=== PATIENT | female | born 1975 | race Caucasian/White ===

== ENCOUNTER 2019-02-27 03:38 | Emergency (ER) | payer SELFPAY ==
[~2019-02-27] VITALS: Ht 160 cm; Wt 56.2 kg
[~2019-02-27 03:38] MED LIST: CIPR500T78 PO; HYDR-1231 PO; IBP800T PO; KETO-22 PO; LEVO500T69 PO; ONDA-42 SL; ONDAN4ODT PO; OXYC10TA7 PO; SULF1TAB38 PO
--- OUTSIDE RECORDS SUMMARY | 2019-02-27 03:43 | XMS REPORT | Clinical Summary ---
Author Author [facility] Organization [facility] Address Unknown Phone Unavailable Care Team Providers Care Facility Administrator Name Role Phone Chandu Daniel MD PCP Kvng Milan MD Unavailable Source Comments Some departments are not documenting in the electronic medical record. If you d o not see the information that you expected, contact Release of Information in [facility] Information Management department at [phone] for further assistan ce in locating additional records.[facility] Allergies Comments Active Allergy Reactions Severity Noted Date Penicillins 10/28/2008 Medications End Date Status Medication Sig Dispensed Refills Start Date Active PRILOSEC 20 mg CpDR Take 20 mg by 0 mouth Daily. Active METOCLOPRAMIDE 10 mg Take 10 mg by 0 tablet mouth Four Times Daily. Active AZITHROMYCIN 250 mg Take 250 mg 0 tablet by mouth Daily. Z-CHRISTINE - DIRECTED Active Problems Not on file Social History Date Tobacco Use Types Packs/Day Years Used Never Assessed Sex Assigned at Date Recorded Not on file Industry Job Start Date Occupation Not on file Not on file Not on file Travel End Travel History Travel Start No recent travel history available. Last Filed Vital Signs Not on file Plan of Treatment Health Maintenance Due Date Last Done Comments PHYSICAL (COMPREHENSIVE) 1982 EXAM HIV SCREENING 1990 DTAP/TDAP VACCINES ( - 1993 Tdap) CERVICAL CANCER SCREENING 2005 BREAST CANCER SCREENING 2015 INFLUENZA VACCINE 06/17/2019 Results Not on filefrom Last 3 Months
--- OUTSIDE RECORDS SUMMARY | 2019-02-27 03:43 | XMS REPORT | Continuity of Care Document ---
Author Organization Unknown Address Unknown Allergies Active Description Code Type Severity Reaction Onset Reported/Identified Relationship to Patient Clinical Status Yes Penicillins Drug Allergy 03/07/2012 Yes Penicillins Drug Allergy N/A N/A 03/07/2012 Medications There is no data. Problems Date Dx Coded Attending Type Code Diagnosis Diagnosed By 03/07/2012 KARAN RENNER DO 719.40 PAIN IN JOINT SITE UNSPECIFIED 03/07/2012 KARAN RENNER DO 729.1 MUSCLE PAIN 03/07/2012 KARAN RENNER DO V49.81 menopause 03/07/2012 KARAN RENNER DO V76.47 Vaginal Pap Smear Screening 03/07/2012 719.40 PAIN IN JOINT SITE UNSPECIFIED 03/07/2012 729.1 MUSCLE PAIN 03/07/2012 V49.81 menopause 03/07/2012 V76.47 Vaginal Pap Smear Screening 03/07/2012 KARAN RENNER DO 719.40 PAIN IN JOINT SITE UNSPECIFIED 03/07/2012 KARAN RENNER DO 729.1 MUSCLE PAIN 03/07/2012 KARAN RENNER DO V49.81 menopause 03/07/2012 KARAN RENNER DO V76.47 Vaginal Pap Smear Screening 03/07/2012 719.40 PAIN IN JOINT SITE UNSPECIFIED 03/07/2012 729.1 MUSCLE PAIN 03/07/2012 V49.81 menopause 03/07/2012 V76.47 Vaginal Pap Smear Screening 03/07/2012 719.40 PAIN IN JOINT SITE UNSPECIFIED 03/07/2012 729.1 MUSCLE PAIN 03/07/2012 V49.81 menopause 03/07/2012 V76.47 Vaginal Pap Smear Screening 03/07/2012 KARAN RENNER DO 719.40 PAIN IN JOINT SITE UNSPECIFIED 03/07/2012 KARAN RENNER DO 729.1 MUSCLE PAIN 03/07/2012 KARAN RENNER DO V49.81 menopause 03/07/2012 RENNER DO, KARAN K V76.47 Vaginal Pap Smear Screening 03/07/2012 DESIREE AGUILAR APRNIDI A 719.40 PAIN IN JOINT SITE UNSPECIFIED 03/07/2012 DESIREE AGUILAR APRNIDI A 729.1 MUSCLE PAIN 03/07/2012 DESIREE AGUILAR APRNIDI A V49.81 menopause 03/07/2012 DESIREE AGUILAR APRNIDI A V76.47 Vaginal Pap Smear Screening 03/07/2012 RENNER DO KARAN K 719.40 PAIN IN JOINT SITE UNSPECIFIED 03/07/2012 RENNER DO, KARAN K 729.1 MUSCLE PAIN 03/07/2012 RENNER DO, KARAN K V49.81 menopause 03/07/2012 RENNER DO, KARAN K V76.47 Vaginal Pap Smear Screening 03/07/2012 RENNER DO, KARAN K 719.40 PAIN IN JOINT SITE UNSPECIFIED 03/07/2012 RENNER DO, KARAN K 729.1 MUSCLE PAIN 03/07/2012 RENNER DO, KARAN K V49.81 menopause 03/07/2012 RENNER DO, KARAN K V76.47 Vaginal Pap Smear Screening 03/07/2012 TAMAR BEE PA-C 719.40 PAIN IN JOINT SITE UNSPECIFIED 03/07/2012 TAMAR BEE PA-C M 729.1 MUSCLE PAIN 03/07/2012 TAMAR BEE PA-C M V49.81 menopause 03/07/2012 TAMAR BEE PA-C V76.47 Vaginal Pap Smear Screening 03/07/2012 JEFF IVORYDEYA A 719.40 PAIN IN JOINT SITE UNSPECIFIED 03/07/2012 JEFF MCKEONDanette DEYA A 729.1 MUSCLE PAIN 03/07/2012 JEFF IVORY DEYA A V49.81 menopause 03/07/2012 JEFF IVORY DEYA A V76.47 Vaginal Pap Smear Screening 03/07/2012 MILLY DDS, CAROLINE B 719.40 PAIN IN JOINT SITE UNSPECIFIED 03/07/2012 MILLY DDS, CAROLINE B 729.1 MUSCLE PAIN 03/07/2012 MILLY DDS, CAROLINE B V49.81 menopause 03/07/2012 MILLY DDS, CAROLINE B V76.47 Vaginal Pap Smear Screening 03/07/2012 JOSE LUIS BAGLEY APRN 719.40 PAIN IN JOINT SITE UNSPECIFIED 03/07/2012 JOSE LUIS BAGLEY APRN R 729.1 MUSCLE PAIN 03/07/2012 JOSE LUIS BAGLEY APRN R V49.81 menopause 03/07/2012 JOSE LUIS BAGLEY APRN V76.47 Vaginal Pap Smear Screening 03/28/2012 KARAN RENNER DO 727.00 SYNOVITIS AND TENOSYNOVITIS UNSPECIFIED 03/28/2012 KARAN RENNER DO 780.79 Other Malaise And Fatigue 03/28/2012 KARAN RENNER DO V58.69 LONG-TERM (CURRENT) USE OF OTHER MEDICATIONS 03/28/2012 KARAN RENNER DO V70.0 ROUTINE GENERAL MEDICAL EXAMINATION AT A HEALTH CARE FACILITY 03/28/2012 727.00 SYNOVITIS AND TENOSYNOVITIS UNSPECIFIED 03/28/2012 780.79 Other Malaise And Fatigue 03/28/2012 V58.69 LONG-TERM (CURRENT) USE OF OTHER MEDICATIONS 03/28/2012 V70.0 ROUTINE GENERAL MEDICAL EXAMINATION AT A HEALTH CARE FACILITY 03/28/2012 KARAN RENNER DO 727.00 SYNOVITIS AND TENOSYNOVITIS UNSPECIFIED 03/28/2012 KARAN RENNER DO 780.79 Other Malaise And Fatigue 03/28/2012 KARAN RENNER DO V58.69 LONG-TERM (CURRENT) USE OF OTHER MEDICATIONS 03/28/2012 KARAN RENNER DO V70.0 ROUTINE GENERAL MEDICAL EXAMINATION AT A HEALTH CARE FACILITY 03/28/2012 727.00 SYNOVITIS AND TENOSYNOVITIS UNSPECIFIED 03/28/2012 780.79 Other Malaise And Fatigue 03/28/2012 V58.69 LONG-TERM (CURRENT) USE OF OTHER MEDICATIONS 03/28/2012 V70.0 ROUTINE GENERAL MEDICAL EXAMINATION AT A HEALTH CARE FACILITY 03/28/2012 727.00 SYNOVITIS AND TENOSYNOVITIS UNSPECIFIED 03/28/2012 780.79 Other Malaise And Fatigue 03/28/2012 V58.69 LONG-TERM (CURRENT) USE OF OTHER MEDICATIONS 03/28/2012 V70.0 ROUTINE GENERAL MEDICAL EXAMINATION AT A HEALTH CARE FACILITY 03/28/2012 KARAN RENNER DO 727.00 SYNOVITIS AND TENOSYNOVITIS UNSPECIFIED 03/28/2012 KARAN RENNER DO 780.79 Other Malaise And Fatigue 03/28/2012 KARAN RENNER DO V58.69 LONG-TERM (CURRENT) USE OF OTHER MEDICATIONS 03/28/2012 KARAN RENNER DO V70.0 ROUTINE GENERAL MEDICAL EXAMINATION AT A HEALTH CARE FACILITY 03/28/2012 JEFF AIR CONTROL/ANTI AIR WARFARE OFFICER, DEYA A 727.00 SYNOVITIS AND TENOSYNOVITIS UNSPECIFIED 03/28/2012 JEFF AIR CONTROL/ANTI AIR WARFARE OFFICER, DEYA A 780.79 Other Malaise And Fatigue 03/28/2012 JEFF AIR CONTROL/ANTI AIR WARFARE OFFICER, DEYA A V58.69 LONG-TERM (CURRENT) USE OF OTHER MEDICATIONS 03/28/2012 JEFF AIR CONTROL/ANTI AIR WARFARE OFFICER, DEYA A V70.0 ROUTINE GENERAL MEDICAL EXAMINATION AT A HEALTH CARE FACILITY 03/28/2012 EARL RENNER DOA K 727.00 SYNOVITIS AND TENOSYNOVITIS UNSPECIFIED 03/28/2012 KARAN RENNER DO 780.79 Other Malaise And Fatigue 03/28/2012 KARAN RENNER DO V58.69 LONG-TERM (CURRENT) USE OF OTHER MEDICATIONS 03/28/2012 KARAN RENNER DO V70.0 ROUTINE GENERAL MEDICAL EXAMINATION AT A HEALTH CARE FACILITY 03/28/2012 KARAN RENNER DO K 727.00 SYNOVITIS AND TENOSYNOVITIS UNSPECIFIED 03/28/2012 KARAN RENNER DO 780.79 Other Malaise And Fatigue 03/28/2012 KARAN RENNER DO V58.69 LONG-TERM (CURRENT) USE OF OTHER MEDICATIONS 03/28/2012 KARAN RENNER DO K V70.0 ROUTINE GENERAL MEDICAL EXAMINATION AT A HEALTH CARE FACILITY 03/28/2012 TAMAR BEE PA-C 727.00 SYNOVITIS AND TENOSYNOVITIS UNSPECIFIED 03/28/2012 TAMAR BEE PA-C 780.79 Other Malaise And Fatigue 03/28/2012 TAMAR BEE PA-C V58.69 LONG-TERM (CURRENT) USE OF OTHER MEDICATIONS 03/28/2012 TAMAR BEE PA-C V70.0 ROUTINE GENERAL MEDICAL EXAMINATION AT A HEALTH CARE FACILITY 03/28/2012 JEFF AIR CONTROL/ANTI AIR WARFARE OFFICER, DEYA A 727.00 SYNOVITIS AND TENOSYNOVITIS UNSPECIFIED 03/28/2012 JEFF AIR CONTROL/ANTI AIR WARFARE OFFICER, DEYA A 780.79 Other Malaise And Fatigue 03/28/2012 DYEA AGUILAR APRN V58.69 LONG-TERM (CURRENT) USE OF OTHER MEDICATIONS 03/28/2012 DEYA AGUILAR APRN V70.0 ROUTINE GENERAL MEDICAL EXAMINATION AT A HEALTH CARE FACILITY 03/28/2012 MILLY DDS, CAROLINE B 727.00 SYNOVITIS AND TENOSYNOVITIS UNSPECIFIED 03/28/2012 MILLY DDS, CAROLINE B 780.79 Other Malaise And Fatigue 03/28/2012 MILLY DDS, CAROLINE B V58.69 LONG-TERM (CURRENT) USE OF OTHER MEDICATIONS 03/28/2012 MILLY DDS, CAROLINE B V70.0 ROUTINE GENERAL MEDICAL EXAMINATION AT A HEALTH CARE FACILITY 03/28/2012 KUMAR BAGLEY APRNINA R 727.00 SYNOVITIS AND TENOSYNOVITIS UNSPECIFIED 03/28/2012 KUMAR BAGLEY APRNINA R 780.79 Other Malaise And Fatigue 03/28/2012 JOSE LUIS BAGLEY APRN R V58.69 LONG-TERM (CURRENT) USE OF OTHER MEDICATIONS 03/28/2012 JOSE LUIS BAGLEY APRN R V70.0 ROUTINE GENERAL MEDICAL EXAMINATION AT A HEALTH CARE FACILITY 03/31/2012 RENNER DO, KARAN K 268.9 VITAMIN D DEFICIENCY 03/31/2012 268.9 VITAMIN D DEFICIENCY 03/31/2012 RENNER DO KARAN K 268.9 VITAMIN D DEFICIENCY 03/31/2012 268.9 VITAMIN D DEFICIENCY 03/31/2012 268.9 VITAMIN D DEFICIENCY 03/31/2012 RENNER DO KARAN K 268.9 VITAMIN D DEFICIENCY 03/31/2012 DEYA AGUILAR APRN 268.9 VITAMIN D DEFICIENCY 03/31/2012 RENNER DO, KARAN K 268.9 VITAMIN D DEFICIENCY 03/31/2012 RENNER DO, KARAN K 268.9 VITAMIN D DEFICIENCY 03/31/2012 TAMAR BEE PA-C 268.9 VITAMIN D DEFICIENCY 03/31/2012 DEYA AGUILAR APRN A 268.9 VITAMIN D DEFICIENCY 03/31/2012 MILLY DDS, CAROLINE B 268.9 VITAMIN D DEFICIENCY 03/31/2012 KEVYN IVORY JOSE LUIS R 268.9 VITAMIN D DEFICIENCY 05/17/2012 RENNER DO KARAN K 354.0 CARPAL TUNNEL SYNDROME 05/17/2012 RENNER DO, KARAN K 783.21 LOSS OF WEIGHT 05/17/2012 354.0 CARPAL TUNNEL SYNDROME 05/17/2012 783.21 LOSS OF WEIGHT 05/17/2012 RENNER DO, KARAN K 354.0 CARPAL TUNNEL SYNDROME 05/17/2012 RENNER DO, KARAN K 783.21 LOSS OF WEIGHT 05/17/2012 354.0 CARPAL TUNNEL SYNDROME 05/17/2012 783.21 LOSS OF WEIGHT 05/17/2012 354.0 CARPAL TUNNEL SYNDROME 05/17/2012 783.21 LOSS OF WEIGHT 05/17/2012 RENNER DO, KARAN K 354.0 CARPAL TUNNEL SYNDROME 05/17/2012 RENNER DO, KARAN K 783.21 LOSS OF WEIGHT 05/17/2012 JEFFCLAUDIA IVORY, DEYA A 354.0 CARPAL TUNNEL SYNDROME 05/17/2012 JEFF IVORY, DEYA A 783.21 LOSS OF WEIGHT 05/17/2012 RENNER DO, KARAN K 354.0 CARPAL TUNNEL SYNDROME 05/17/2012 RENNER DO KARAN K 783.21 LOSS OF WEIGHT 05/17/2012 RENNER DO, KARAN K 354.0 CARPAL TUNNEL SYNDROME 05/17/2012 RENNER DO, KARAN K 783.21 LOSS OF WEIGHT 05/17/2012 TAMAR BEE PA-C 354.0 CARPAL TUNNEL SYNDROME 05/17/2012 TAMAR BEE PA-C 783.21 LOSS OF WEIGHT 05/17/2012 JEFF IVORY, DEYA A 354.0 CARPAL TUNNEL SYNDROME 05/17/2012 DESIREE AGUILAR APRNIDI A 783.21 LOSS OF WEIGHT 05/17/2012 MILLY DDS, CAROLINE B 354.0 CARPAL TUNNEL SYNDROME 05/17/2012 MILLY DDS, CAROLINE B 783.21 LOSS OF WEIGHT 05/17/2012 KEVYN IVORY, JOSE LUIS R 354.0 CARPAL TUNNEL SYNDROME 05/17/2012 KEVYN IVORY, JOSE LUIS R 783.21 LOSS OF WEIGHT 08/05/2012 RENNER DOEARLA K 461.9 SINUSITIS ACUTE 08/05/2012 RENNER DO KARAN K V65.42 COUNSELING - SMOKING CESSATION 08/05/2012 461.9 SINUSITIS ACUTE 08/05/2012 V65.42 COUNSELING - SMOKING CESSATION 08/05/2012 KARAN RENNER DO K 461.9 SINUSITIS ACUTE 08/05/2012 KARAN RENNER DO K V65.42 COUNSELING - SMOKING CESSATION 08/05/2012 461.9 SINUSITIS ACUTE 08/05/2012 V65.42 COUNSELING - SMOKING CESSATION 08/05/2012 461.9 SINUSITIS ACUTE 08/05/2012 V65.42 COUNSELING - SMOKING CESSATION 08/05/2012 KARAN RENNER DO K 461.9 SINUSITIS ACUTE 08/05/2012 EARL RENNER DOA K V65.42 COUNSELING - SMOKING CESSATION 08/05/2012 JEFFCLAUDIA IVORY DEYA A 461.9 SINUSITIS ACUTE 08/05/2012 JEFFDanette IVORY DEYA A V65.42 COUNSELING - SMOKING CESSATION 08/05/2012 KAARN RENNER DO K 461.9 SINUSITIS ACUTE 08/05/2012 KARAN RENNER DO K V65.42 COUNSELING - SMOKING CESSATION 08/05/2012 KARAN RENNER DO K 461.9 SINUSITIS ACUTE 08/05/2012 KARAN RENNER DO K V65.42 COUNSELING - SMOKING CESSATION 08/05/2012 TAMAR BEE PA-C M 461.9 SINUSITIS ACUTE 08/05/2012 TAMAR BEE PA-C M V65.42 COUNSELING - SMOKING CESSATION 08/05/2012 JEFF IVORY DEYA A 461.9 SINUSITIS ACUTE 08/05/2012 JEFFDanette IVORY DEYA A V65.42 COUNSELING - SMOKING CESSATION 08/05/2012 MILLY MATHURS, CAROLINE B 461.9 SINUSITIS ACUTE 08/05/2012 MILLYKIRSTY MATHURS, CAROLINE B V65.42 COUNSELING - SMOKING CESSATION 08/05/2012 KEVYN IVORY, JOSE LUIS R 461.9 SINUSITIS ACUTE 08/05/2012 KEVYN IVORY, JOSE LUIS R V65.42 COUNSELING - SMOKING CESSATION 10/21/2012 KARAN RENNER DO 787.20 DYSPHAGIA UNSPECIFIED 10/21/2012 KARAN RENNER DO 789.00 ABDOMINAL PAIN UNSPECIFIED SITE 10/21/2012 787.20 DYSPHAGIA UNSPECIFIED 10/21/2012 789.00 ABDOMINAL PAIN UNSPECIFIED SITE 10/21/2012 787.20 DYSPHAGIA UNSPECIFIED 10/21/2012 789.00 ABDOMINAL PAIN UNSPECIFIED SITE 10/21/2012 RENNER DO, KARAN K 787.20 DYSPHAGIA UNSPECIFIED 10/21/2012 RENNER DO, KARAN K 789.00 ABDOMINAL PAIN UNSPECIFIED SITE 10/21/2012 JEFF AIR CONTROL/ANTI AIR WARFARE OFFICER, DEYA A 787.20 DYSPHAGIA UNSPECIFIED 10/21/2012 JEFF AIR CONTROL/ANTI AIR WARFARE OFFICER, DEYA A 789.00 ABDOMINAL PAIN UNSPECIFIED SITE 10/21/2012 RENNER DO, KARAN K 787.20 DYSPHAGIA UNSPECIFIED 10/21/2012 RENNER DO, KARAN K 789.00 ABDOMINAL PAIN UNSPECIFIED SITE 10/21/2012 RENNER DO, KARAN K 787.20 DYSPHAGIA UNSPECIFIED 10/21/2012 RENNER DO, KARAN K 789.00 ABDOMINAL PAIN UNSPECIFIED SITE 10/21/2012 TAMAR BEE PA-C 787.20 DYSPHAGIA UNSPECIFIED 10/21/2012 TAMAR BEE PA-C 789.00 ABDOMINAL PAIN UNSPECIFIED SITE 10/21/2012 JEFF IVORY, DEYA A 787.20 DYSPHAGIA UNSPECIFIED 10/21/2012 JEFF APRN, DEYA A 789.00 ABDOMINAL PAIN UNSPECIFIED SITE 10/21/2012 MILLY DDS, CAROLINE B 787.20 DYSPHAGIA UNSPECIFIED 10/21/2012 MILLY DDS, CAROLINE B 789.00 ABDOMINAL PAIN UNSPECIFIED SITE 10/21/2012 KEVYN IVORY, JOSE LUIS R 787.20 DYSPHAGIA UNSPECIFIED 10/21/2012 KEVYN MCKEONN, JOSE LUIS R 789.00 ABDOMINAL PAIN UNSPECIFIED SITE 02/21/2013 041.86 H. PYLORI INFECTION 02/21/2013 789.07 ABDOMINAL PAIN GENERALIZED 02/21/2013 RENNER DO, KARAN K 041.86 H. PYLORI INFECTION 02/21/2013 RENNER DO, KARAN K 789.07 ABDOMINAL PAIN GENERALIZED 02/21/2013 JEFF AIR CONTROL/ANTI AIR WARFARE OFFICER, DEYA A 041.86 H. PYLORI INFECTION 02/21/2013 JEFF AIR CONTROL/ANTI AIR WARFARE OFFICER, DEYA A 789.07 ABDOMINAL PAIN GENERALIZED 02/21/2013 RENNER DO, KARAN K 041.86 H. PYLORI INFECTION 02/21/2013 RENNER DO, KARAN K 789.07 ABDOMINAL PAIN GENERALIZED 02/21/2013 RENNER DO, KARAN K 041.86 H. PYLORI INFECTION 02/21/2013 RENNER DO, KARAN K 789.07 ABDOMINAL PAIN GENERALIZED 02/21/2013 TAMAR BEE PA-C 041.86 H. PYLORI INFECTION 02/21/2013 TAMAR BEE PA-C 789.07 ABDOMINAL PAIN GENERALIZED 02/21/2013 [facility] AIR CONTROL/ANTI AIR WARFARE OFFICER, DEYA A 041.86 H. PYLORI INFECTION 02/21/2013 JEFF AIR CONTROL/ANTI AIR WARFARE OFFICER, DEYA A 789.07 ABDOMINAL PAIN GENERALIZED 02/21/2013 ON LICENSE OF [facility] DDS, CAROLINE B 041.86 H. PYLORI INFECTION 02/21/2013 ON LICENSE OF [facility] DDS, CAROLINE B 789.07 ABDOMINAL PAIN GENERALIZED 02/21/2013 KEVYN AIR CONTROL/ANTI AIR WARFARE OFFICER, JOSE LUIS R 041.86 H. PYLORI INFECTION 02/21/2013 KEVYN AIR CONTROL/ANTI AIR WARFARE OFFICER, JOSE LUIS R 789.07 ABDOMINAL PAIN GENERALIZED 04/17/2013 RENNER DO, KARAN K 719.46 PAIN- KNEE 04/17/2013 JEFF APRN, DEYA A 719.46 PAIN- KNEE 04/17/2013 RENNER DO, KARAN K 719.46 PAIN- KNEE 04/17/2013 RENNER DO, KARAN K 719.46 PAIN- KNEE 04/17/2013 TAMAR BEE PA-C 719.46 PAIN- KNEE 04/17/2013 [facility] AIR CONTROL/ANTI AIR WARFARE OFFICER, DEYA A 719.46 PAIN- KNEE 04/17/2013 ON LICENSE OF [facility] DDS, CAROLINE B 719.46 PAIN- KNEE 04/17/2013 KEVYN IVORY, JOSE LUIS R 719.46 PAIN- KNEE 11/05/2013 JEFF APRN, DEYA A 599.0 URINARY TRACT INFECTION 11/05/2013 RENNER DO, KARAN K 599.0 URINARY TRACT INFECTION 11/05/2013 RENNER DO, KARAN K 599.0 URINARY TRACT INFECTION 11/05/2013 TAMAR BEE PA-C 599.0 URINARY TRACT INFECTION 11/05/2013 JEFF APRN, DEYA A 599.0 URINARY TRACT INFECTION 11/05/2013 ON LICENSE OF [facility] DDS, CAROLINE B 599.0 URINARY TRACT INFECTION 11/05/2013 JOSE LUIS BAGLEY APRN R 599.0 URINARY TRACT INFECTION 11/30/2013 RENNER DO, KARAN K 599.70 HEMATURIA 11/30/2013 RENNER DO, KARAN K 599.70 HEMATURIA 11/30/2013 TAMAR BEE PA-C 599.70 HEMATURIA 11/30/2013 JEFF APRN, DEYA A 599.70 HEMATURIA 11/30/2013 MILLY DDS, CAROLINE B 599.70 HEMATURIA 11/30/2013 KUMAR BAGLEY APRNINA R 599.70 HEMATURIA 12/03/2013 KARAN RENNER DO 455.6 UNSPECIFIED HEMORRHOIDS WITHOUT COMPLICATION 12/03/2013 TAMAR BEE PA-C 455.6 UNSPECIFIED HEMORRHOIDS WITHOUT COMPLICATION 12/03/2013 JEFFDEYA Samaniego APRN A 455.6 UNSPECIFIED HEMORRHOIDS WITHOUT COMPLICATION 12/03/2013 MLILY DDS, CAROLINE B 455.6 UNSPECIFIED HEMORRHOIDS WITHOUT COMPLICATION 12/03/2013 JOSE LUIS BAGLEY APRN R 455.6 UNSPECIFIED HEMORRHOIDS WITHOUT COMPLICATION 12/24/2013 DEYA AGUILAR APRN A 789.03 ABDOMINAL PAIN RIGHT LOWER QUADRANT 12/24/2013 DEYA AGUILAR APRN A V72.31 MEAT GRADER EXAM, ROUTINE 12/24/2013 DEYA AGUILAR APRN A V76.10 BREAST CANCER SCREENING 12/24/2013 MILLY DDS, CAROLINE B 789.03 ABDOMINAL PAIN RIGHT LOWER QUADRANT 12/24/2013 MILLY DDS, CAROLINE B V72.31 MEAT GRADER EXAM, ROUTINE 12/24/2013 MILLY DDS, CAROLINE B V76.10 BREAST CANCER SCREENING 12/24/2013 JOSE LUIS BAGLEY APRN R 789.03 ABDOMINAL PAIN RIGHT LOWER QUADRANT 12/24/2013 JOSE LUIS BAGLEY APRN R V72.31 MEAT GRADER EXAM, ROUTINE 12/24/2013 JOSE LUIS BAGLEY APRN R V76.10 BREAST CANCER SCREENING 03/30/2014 MILLY DDS, CAROLINE B V72.2 DENTAL EXAMINATION 03/30/2014 KUMAR BAGLEY APRNINA R V72.2 DENTAL EXAMINATION 06/19/2014 JOSE LUIS BAGLEY APRN 307.81 TENSION HEADACHE Procedures Code [place] [address] [place] CHEST W/O DYE 10/21/[address] ABDOMEN & PELVIS W/ & W/O CONTRAST 10/21/2012 37247 H PYLORI (IN-HOUSE) 02/21/2013 77271 UA W/ CULTURE IF INDICATED 11/05/[address] ABDOMEN & PELVIS W/ & W/O CONTRAST 11/28/2013 09556 UA W/ CULTURE IF INDICATED 11/28/2013 49450 UA W/MICROSCOPY 11/28/2013 96254 CULTURE URINE 11/29/2013 72669 ROUTINE VENIPUNCTURE 12/11/2013 50365 VITAMIN D 25-HYDROXY (D2,D3, TOTAL) 12/11/2013 42902 CBC 12/11/2013 86700 UA W/ CULTURE IF INDICATED 12/11/2013 D0140 LIMIT ORAL EVAL PROBLM FOCUS 03/30/2014 D0220 INTRAORAL PERIAPICAL FIRST F 03/30/[address] ABDOMEN & PELVIS W/ & W/O CONTRAST 03/30/2014 Results There is no data. Encounters ACCT No. Visit Date/Time Discharge Status Pt. Type Provider Facility Loc./Unit Complaint [id number] 06/19/2014 14:27:00 06/19/2014 23:59:59 CLS Outpatient JOSE LUIS BAGLEY APRN [id number] 03/30/2014 13:10:00 03/30/2014 23:59:59 CLS Outpatient CAROLINE ATKINS DDS [id number] 12/24/2013 09:06:00 12/24/2013 23:59:59 CLS Outpatient DEYA AGUILAR APRN [id number] 12/11/2013 14:10:00 12/11/2013 23:59:59 CLS Outpatient TAMAR BEE PA-C [id number] 12/03/2013 17:19:00 12/03/2013 23:59:59 CLS Outpatient KARAN RENNER DO [id number] 11/28/2013 09:39:00 11/28/2013 23:59:59 CLS Outpatient KARAN RENNER DO [id number] 11/05/2013 17:55:00 11/05/2013 23:59:59 CLS Outpatient DEYA AGUILAR APRN [id number] 04/17/2013 14:03:00 04/17/2013 23:59:59 CLS Outpatient KARAN RENNER DO [id number] 11/20/2012 16:48:00 11/20/2012 23:59:59 CLS Outpatient [id number] 10/21/2012 10:44:00 10/21/2012 23:59:59 CLS Outpatient KARAN RENNER DO [id number] 10/10/2012 13:35:00 10/10/2012 23:59:59 CLS Outpatient [id number] 07/11/2012 14:33:00 07/11/2012 23:59:59 CLS Outpatient KARAN RENNER DO [id number] 02/21/2013 13:29:00 Document Registration [id number] 06/11/2014 13:07:00 06/11/2014 23:59:59 CLS Outpatient [id number] 12/02/2013 08:42:00 12/02/2013 23:59:59 CLS Outpatient [id number] 11/21/2013 19:23:00 11/21/2013 22:18:00 DIS Emergency [id number] 10/31/2013 20:56:00 11/01/2013 00:27:00 DIS Emergency
--- OUTSIDE RECORDS SUMMARY | 2019-02-27 03:43 | XMS REPORT | Encounter Summary ---
Author Author [facility] Organization [facility] Address Unknown Phone Unavailable Care Team Providers Care Infrastructure Software Engineer Name Role Phone Chandu Daniel MD PCP Encounter Details Care Team Description Date Type Department Kvng Milan MD [address] [facility] [address] [place] [address] [phone] Scotty Mcallister MD [address] [facility] [address] [place] [address] [phone] 10/28/2008 [facility] Encounter [address] [place], [place] [id number] Social History Date Tobacco Use Types Packs/Day Years Used Never Assessed Sex Assigned at Date Recorded Not on file Industry Job Start Date Occupation Not on file Not on file Not on file Travel End Travel History Travel Start No recent travel history available. documented as of this encounter Medications at Time of Discharge Start Date End Date Medication Sig Dispensed Refills PRILOSEC 20 mg CpDR Take 20 mg by 0 mouth Daily. METOCLOPRAMIDE 10 mg Take 10 mg by 0 tablet mouth Four Times Daily. AZITHROMYCIN 250 mg Take 250 mg 0 tablet by mouth Daily. Z-CHRISTINE - DIRECTED documented as of this encounter Plan of Treatment Not on filedocumented as of this encounter Visit Diagnoses Not on filedocumented in this encounter Administered Medications Action Date Dose Rate Site Medication Order MAR Action 10/28/2008 12:22 PM PVC MONITOR 3.5 mL LIDOCAINE HCL 2 % MM JELP (AcuDose pull) Given NOW, 1 dose, 10/28/08 at 1200, Kassie Hewitt: Caitlin OverrKassie hernandez: Cabinet Override, documented in this encounter
[2019-02-27] MEDS ORDERED: ONDANSETRON 4 MG/2 ML (SDV) Z0FRAN IVP ONE (04:00)
[2019-02-27] MEDS ORDERED: LIDOCAINE 2% VISCOUS 15 ML UDC PO ONE (04:00)
[2019-02-27] MEDS ORDERED: ANTACID SUSP 30 ML UDC (MYLANTA) PO ONE (04:00)
[2019-02-27] MEDS ORDERED: NS IV 1000 ML 1,000 ML IV SCH (04:00)
[2019-02-27] MEDS ORDERED: PANTOPRAZOLE 40 MG (PROTONIX) VIAL IV ONE (04:00)
--- NOTE | 2019-02-27 04:07 | ED Abdominal Pain ---
General Chief Complaint: Abdominal/GI Problems Stated Complaint: ABD PAIN Nursing Triage Note: Patient states that she began having abdominal pain approximately 2 weeks ago that has progressively gotten worse. Patient has not see a doctor for this issue. Patient states her pain is in her epigastric area and rates it at a 6 on the 1-10 pain scale. Patient does have complaints of nausea with no vomiting. Last BM was 03/01/19 and it was normal. 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 Sepsis Screen: No Definite Risk History of Present Illness Date Seen by Provider: Feb 27, 2019 Time Seen by Provider: 03:50 Initial Comments The patient is a pleasant 43-year-old female who presents for evaluation of epig astric abdominal pain. She said it started 2 weeks ago. She reports a history of hiatal hernia and says that she has had similar pain before. Reports over the past 2 weeks has been increasing in intensity. She currently rates the pain as a 6 out of 10 and states that anything she tries to eat or drink makes the pain worse. She cannot find anything that helps. She said some mild nausea but no vomiting. She took Tylenol approximately one hour ago with little relief. She denies history of gastritis or peptic ulcer disease. She reports a past surgical history including cholecystectomy and total hysterectomy. She is alert and oriented 4, appears uncomfortable, but is in no distress at this time. She denies any recent alcohol or any history of pancreatitis. She does smoke cigarettes. She denies fevers or chills, rectal bleeding, pelvic pain/bleeding/discharge, urinary complaints, chest pain or shortness of breath, dizziness or syncope. Timing/Duration: Other (2 weeks) Severity/Quality: Moderate, Burning Location: Epigastric Radiation: No Radiation Activities at Onset: None Modifying Factors: Improves With Eating (makes it worse) Associated Symptoms: Heartburn, Nausea/Vomiting (nausea, no vomiting) Allergies and Home Medications Allergies Coded Allergies: Penicillins (Unverified Allergy, Mild, RASH, 07/11/10) Home Medications Ciprofloxacin HCl 500 Mg Tablet, 500 MG PO BID Prescribed by: TAMAR RICE on 11/21/132203 Hydrocodone Bit/Acetaminophen 1 Tab Tablet, 1-2 TAB PO Q6H PRN for PAIN Prescribed by: TAMAR RICE on 11/21/132203 Ketorolac Tromethamine 10 Mg Tablet, 10 MG PO Q6H Prescribed by: STEPH CADET on 10/31/132342 Levofloxacin 500 Mg Tab, 1 EACH PO DAILY Prescribed by: STEPH CADET on 10/31/132342 Ondansetron Hcl 4 Mg Tab, 4 MG SL Q4H FOR NAUSEA AND VOMITING Prescribed by: STEPH CADET on 10/31/132342 Patient Home Medication List Home Medication List Reviewed: Yes Review of Systems Review of Systems Constitutional: no symptoms reported EENTM: No Symptoms Reported Respiratory: No Symptoms Reported Cardiovascular: No Symptoms Reported Gastrointestinal: Abdominal Pain, Nausea Genitourinary: No Symptoms Reported Musculoskeletal: no symptoms reported Skin: no symptoms reported Psychiatric/Neurological: No Symptoms Reported Endocrine: No Symptoms Reported Hematologic/Lymphatic: No Symptoms Reported All Other Systems Reviewed Negative Unless Noted: Yes Past [id number]-Yjifmh Hx Past Med/Social Hx: Reviewed Nursing Past Med/Soc Hx, Reviewed and Corrections made Patient Social History Alcohol Use: Denies Use Recreational Drug Use: No Smoking Status: Current Everyday Smoker Type Used: Cigarettes 2nd Hand Smoke Exposure: Yes Recent Foreign Travel: No Contact w/Someone Who Travel: No Recent Infectious Disease Expo: No Recent Hopitalizations: No Physical Abuse: No Sexual Abuse: No Mistreated: No Fear: No Immunizations Up To Date Tetanus Booster (TDap): Less than 5yrs Seasonal Allergies Seasonal Allergies: No Past Medical History Surgeries: Yes (Hiatal Hernia Repair) Gallbladder, Hysterectomy Respiratory: No Cardiac: No Neurological: No Reproductive Disorders: No 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 0oz. [id number]; BMI Method:Stated General Appearance: WD/WN, no apparent distress HEENT: PERRL/EOMI, pharynx normal Neck: non-tender, full range of motion, normal inspection Respiratory: chest non-tender, lungs clear, normal breath sounds, no respiratory distress Cardiovascular: regular rate, rhythm, no edema, no JVD Gastrointestinal: normal bowel sounds, soft, no organomegaly, no pulsatile mass, tenderness (moderate tenderness over the epigastric region, otherwise benign abdominal examination, soft, no guarding, no rigidity, no distention or pulsatile mass) Extremities: normal range of motion, non-tender, normal inspection, no pedal edema Back: normal inspection, no CVA tenderness, no vertebral tenderness 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, no motor/sensory deficits, alert, normal mood/affect, oriented x 3 Skin: normal color, warm/dry Lymphatic: no adenopathy Progress/Results/Core Measures Results/Orders Lab Results Laboratory Tests Test 02/27/19 03:54 02/27/19 04:24 Range/Units Urine Color YELLOW Urine Clarity CLEAR Urine pH 6.0 5-9 Urine Specific [place] 1.025 H 1.016-1.022 Urine Protein 1+ H NEGATIVE Urine Glucose (UA) NEGATIVE NEGATIVE Urine Ketones NEGATIVE NEGATIVE Urine Nitrite NEGATIVE NEGATIVE Urine Bilirubin NEGATIVE NEGATIVE Urine Urobilinogen 0.2 NORMAL MG/DL Urine Leukocyte Esterase NEGATIVE NEGATIVE Urine RBC (Auto) 3+ H NEGATIVE Urine RBC 10-25 H /HPF Urine WBC RARE /HPF Urine Crystals NONE /LPF Urine Bacteria NEGATIVE /HPF Urine Casts NONE /LPF Urine Mucus NEGATIVE /LPF Urine Culture Indicated NO Sodium Level 142 135-145 MMOL/L Potassium Level 4.2 3.6-5.0 MMOL/L Chloride Level 103 98-107 MMOL/L Carbon Dioxide Level 25 21-32 MMOL/L Anion Gap 14 5-14 MMOL/L Blood Urea Nitrogen 25 H 7-18 MG/DL Creatinine 0.78 0.60-1.30 MG/DL Estimat Glomerular Filtration Rate > 60 BUN/Creatinine Ratio 32 Glucose Level 117 H 70-105 MG/DL Calcium Level 9.5 8.5-10.1 MG/DL Corrected Calcium 8.5-10.1 MG/DL Total Bilirubin 0.2 0.1-1.0 MG/DL Aspartate Amino Transf (AST/SGOT) 24 5-34 U/L Alanine Aminotransferase (ALT/SGPT) 20 0-55 U/L Alkaline Phosphatase 88 40-136 U/L Total Protein 7.9 6.4-8.2 GM/DL Albumin 4.6 H 3.2-4.5 GM/DL Amylase Level 90 25-125 U/L Lipase 54 8-78 U/L White Blood Count 10.5 4.3-11.0 10^3/uL Red Blood Count 4.81 4.35-5.85 10^6/uL Hemoglobin 14.5 11.5-16.0 G/DL Hematocrit 44 35-52 % Mean Corpuscular Volume 90 80-99 FL Mean Corpuscular Hemoglobin 30 25-34 PG Mean Corpuscular Hemoglobin Concent 33 32-36 G/DL Red Cell Distribution Width 12.3 10.0-14.5 % Platelet Count 242 130-400 10^3/uL Mean Platelet Volume 10.3 7.4-10.4 FL Neutrophils (%) (Auto) 51 42-75 % Lymphocytes (%) (Auto) 33 12-44 % Monocytes (%) (Auto) 10 0-12 % Eosinophils (%) (Auto) 5 0-10 % Basophils (%) (Auto) 1 0-10 % Neutrophils # (Auto) 5.3 1.8-7.8 X 10^3 Lymphocytes # (Auto) 3.4 1.0-4.0 X 10^3 Monocytes # (Auto) 1.1 H 0.0-1.0 X 10^3 Eosinophils # (Auto) 0.5 H 0.0-0.3 10^3/uL Basophils # (Auto) 0.1 0.0-0.1 10^3/uL My Orders Orders - ELLE QUEZADA DO Comprehensive Metabolic Panel (02/27/19 03:54) Lipase (02/27/19 03:54) Amylase (02/27/19 03:54) Ua Culture If Indicated (02/27/19 03:54) Ed Iv/Invasive Line Start (02/27/19 03:54) Cbc With Automated Diff (02/27/19 03:54) Lidocaine 2% Viscous 15 Ml (Xylocaine Vi (02/27/19 04:00) Antacid Suspension (Mylanta Suspension (02/27/19 04:00) Pantoprazole Injection (Protonix Injecti (02/27/19 04:00) Ondansetron Injection (Zofran Injectio (02/27/19 04:00) Ns Iv 1000 Ml (Sodium Chloride 0.9%) (02/27/19 04:00) Medications Given in ED Current Medications Medications Dose Ordered Sig/Daron Route Start Time Stop Time Status Last Admin Dose Admin Al Hydrox/Mg Hydrox/Simethicone 30 ml ONCE ONCE PO 02/27/19 04:00 02/27/19 04:01 DC 02/27/19 04:47 30 ML Lidocaine HCl 15 ml ONCE ONCE PO 02/27/19 04:00 02/27/19 04:01 DC 02/27/19 04:47 15 ML Ondansetron HCl 4 mg ONCE ONCE IVP 02/27/19 04:00 02/27/19 04:01 DC 02/27/19 04:47 4 MG Pantoprazole 40 mg ONCE ONCE IV 02/27/19 04:00 02/27/19 04:01 DC 02/27/19 04:47 40 MG Vital Signs/I&O 02/27/19 03:42 Temp 98.2 Pulse 97 Resp 20 B/P (MAP) 126/98 (107) Pulse Ox 99 O2 Delivery Room Air Blood Pressure Mean: 107 Progress Progress Note : Progress Note @0505 - The patient reports feeling much better after the GI cocktail and medications. Her labs are essentially unremarkable. She was noted to have some blood in her urine however her symptoms did not clinically fit a kidney stone or an acute UTI. Advised the patient to follow up with her PCP in the next 2-3 days regarding the hematuria and epigastric abdominal pain. She'll go home with a prescription for Zofran and Protonix. She may need to have an EGD performed in the near future and she expresses verbal understanding regarding this. Advised the patient to return to the emergency Department immediately for new or worse iman symptoms. The patient expresses verbal understanding and agreement with the plan and is stable for discharge. Departure Impression Primary Impression: Epigastric abdominal pain Additional Impression: Hiatal hernia Disposition: 01 HOME, SELF-CARE Condition: Stable Departure-Patient Inst. Decision time for Depature: 05:12 Referrals: NO,LOCAL PHYSICIAN (PCP) Primary Care Physician Patient Instructions: Hiatal Hernia, Peptic Ulcers, Gastritis (DC) Add. Discharge Instructions: Follow-up with your doctor in the next 2-3 days. Take the prescribed medications as directed. Return to emergency department immediately for new or worsening symptoms. Scripts Pantoprazole Sodium (Protonix) 20 Mg Tablet.dr 20 MG PO DAILY for 30 Days, #30 TAB Prov: ELLE QUEZADA DO 02/27/19 Ondansetron (Ondansetron Odt) 4 Mg Tab.rapdis 4 MG PO Q4H, #20 TAB Prov: ELLE QUEZADA DO 02/27/19 ELLE QUEZADA DO Feb 27, 2019 04:07
[2019-02-27 04:33] LABS: HEMATOCRIT 44 % (35-52); HEMOGLOBIN 14.5 G/DL (11.5-16.0); MEAN CORPUSCULAR HEMOGLOBIN 30 PG (25-34); MEAN CORPUSCULAR HGB CONC 33 G/DL (32-36); MEAN CORPUSCULAR VOLUME 90 FL (80-99); MEAN PLATELET VOLUME 10.3 FL (7.4-10.4); PLATELET COUNT 242 10^3/uL (130-400); RED CELL DISTRIBUTION WIDTH 12.3 % (10.0-14.5); WHITE BLOOD COUNT 10.5 10^3/uL (4.3-11.0)
[2019-02-27 04:34] LABS: BASOPHILS # (AUTO) 0.1 10^3/uL (0.0-0.1); BASOPHILS % (AUTO) 1 % (0-10); EOSINOPHILS # (AUTO) 0.5 10^3/uL (0.0-0.3); EOSINOPHILS % (AUTO) 5 % (0-10); LYMPHOCYTES # (AUTO) 3.4 X 10^3 (1.0-4.0); LYMPHOCYTES % (AUTO) 33 % (12-44); MONOCYTES # (AUTO) 1.1 X 10^3 (0.0-1.0); MONOCYTES % (AUTO) 10 % (0-12); NEUTROPHILS # (AUTO) 5.3 X 10^3 (1.8-7.8); NEUTROPHILS % (AUTO) 51 % (42-75)
[2019-02-27 04:35] LABS: BACTERIA,URINE NEGATIVE /HPF; BILIRUBIN,URINE NEGATIVE (NEGATIVE); CLARITY,URINE CLEAR; COLOR,URINE YELLOW; GLUCOSE, URINE (UA) NEGATIVE (NEGATIVE); KETONES,URINE NEGATIVE (NEGATIVE); LEUKOCYTE ESTERASE ,URINE NEGATIVE (NEGATIVE); NITRITE,URINE NEGATIVE (NEGATIVE); PROTEIN,URINE 1+ (NEGATIVE); UROBILINOGEN,URINE 0.2 MG/DL (NORMAL); WBC,URINE RARE /HPF
[2019-02-27 04:45] LABS: POTASSIUM 4.2 MMOL/L (3.6-5.0); SODIUM 142 MMOL/L (135-145)
[2019-02-27 04:46] LABS: ALANINE AMINOTRANSFERASE 20 U/L (0-55); ALBUMIN 4.6 GM/DL (3.2-4.5); ALKALINE PHOSPHATASE 88 U/L (40-136); AMYLASE 90 U/L (25-125); BILIRUBIN,TOTAL 0.2 MG/DL (0.1-1.0); BUN/CREATININE RATIO 32; CALCIUM 9.5 MG/DL (8.5-10.1); CARBON DIOXIDE 25 MMOL/L (21-32); CHLORIDE 103 MMOL/L (98-107); CREATININE SERUM 0.78 MG/DL (0.60-1.30); GFR ESTIMATED > 60; GLUCOSE 117 MG/DL (70-105); LIPASE 54 U/L (8-78); TOTAL PROTEIN 7.9 GM/DL (6.4-8.2)
[2019-02-27] MEDS ORDERED: PANT20TA2 PO (05:18)
[2019-02-27] MEDS ORDERED: ONDA4TAB11 PO (05:18)
[2019-02-27 05:25] VITALS: BP 112/69
== END 2019-02-27 05:25 | disposition home or self-care (01) ==
LOC: EDUNIT# 03:38 → ER FS 03:40
DX: K44.9 Diaphragmatic hernia without obstruction or gangrene (principal); F32.9 Major depressive disorder, single episode, unspecified; F17.210 Nicotine dependence, cigarettes, uncomplicated; Z88.0 Allergy status to penicillin; Z90.49 Acquired absence of other specified parts of digestive tract; Z90.710 Acquired absence of both cervix and uterus; Z98.890 Other specified postprocedural states
CPT/HCPCS: 36415; 80053; 81000; 82150; 83690; 85025; 96374; 96375